=== PATIENT | female | born 1960 | race Caucasian/White ===

== ENCOUNTER → 2023-05-17 06:56 | Outpatient (REF) | payer MEDICARE, OTHER, SELFPAY | LOC: MRI 3T 06:56 | PROVIDERS: ATTENDING PHYSICIAN Orthopaedic Surgery; FAMILY PHYSICIAN Family Medicine | DX: R26.81 Unsteadiness on feet (principal); M25.562 Pain in left knee; S83.002S Unspecified subluxation of left patella, sequela | CPT/HCPCS: 73721 ==